=== PATIENT | female | born 1960 | race Hispanic/Latino ===

== ENCOUNTER 2018-12-16 15:47 | Outpatient (RCR) | payer BC ==
[~2018-12-16 15:47] MED LIST: DIOVAN HCT 80-1 EACH PO; ETODOLAC400 MG PO; LEVOCETIRIZINE D5 MG PO
== END 2018-12-17 ==
LOC: PT 15:47
PROVIDERS: ATTEND Specialist
DX: M17.12 Unilateral primary osteoarthritis, left knee (principal); M62.81 Muscle weakness (generalized); R26.2 Difficulty in walking, not elsewhere classified

== ENCOUNTER 2019-01-05 16:00 | Outpatient (RCR) | payer BC | END 2019-01-17 | LOC: PT 16:00 | PROVIDERS: ATTEND Specialist | DX: M17.12 Unilateral primary osteoarthritis, left knee (principal); M62.81 Muscle weakness (generalized); R26.2 Difficulty in walking, not elsewhere classified | CPT/HCPCS: 97139 ==